=== PATIENT | male | born 1975 | race Two or more races ===

== ENCOUNTER → 2022-03-07 | Day surgery (SDC) | payer BC ==
[~2022-03-07] VITALS: Ht 170.2 cm; Wt 117.9 kg
[~2022-03-07] MED LIST: CELEXA40 MG PO; CLARITIN10 MG PO; CRESTOR20 MG PO; HYDROCHLOROTH12.5 MG PO; NORVASC5 MG PO; PROAIR HFA8.5 GM IH; SYMBICORT 80/10.2 GM IH; TOPROL XL50 M1 PO
== END | disposition home or self-care (01) ==
LOC: CIR.AMB 07:00
PROVIDERS: ATTEND Orthopaedic Surgery
DX: S52.571A Other intraarticular fracture of lower end of right radius, initial encounter for closed fracture (principal); X58.XXXA Exposure to other specified factors, initial encounter; Y93.9 Activity, unspecified; Y92.9 Unspecified place or not applicable; M65.821 Other synovitis and tenosynovitis, right upper arm; I10 Essential (primary) hypertension; Z20.822 Contact with and (suspected) exposure to COVID-19; Z88.0 Allergy status to penicillin
CPT/HCPCS: 25609; 25290; L8699

== ENCOUNTER 2022-04-03 11:55 | Outpatient (CLI) | payer BC | END 2022-04-03 12:12 | disposition home or self-care (01) | LOC: RAD 11:55 | PROVIDERS: ATTEND Orthopaedic Surgery | DX: S52.571D Other intraarticular fracture of lower end of right radius, subsequent encounter for closed fracture with routine healing (principal) ==